=== PATIENT | male | born 1965 | race American Indian/Alaskan Native ===

== ENCOUNTER 2018-08-26 19:21 | Inpatient (IN) | payer MEDICARE, OTHER ==
[2018-08-26 19:21] VITALS: BMI 36.3
[2018-08-26 19:55] LABS: BASO # 0.2 K/uL (0.0-0.2); BASO % 2.8 % (0.0-2.0); EOS # 0.2 K/uL (0.0-0.7); EOS % 2.8 % (0.0-4.0); HEMOGLOBIN 12.2 g/dL (12.0-18.0); LYMPH # 2.3 K/uL (1.0-4.3); LYMPH % 30.8 % (20.0-40.0); MEAN CELL VOLUME 84.5 fl (80.0-94.0); MEAN CORPUSCULAR HEMOGLOBIN 28.3 pg (27.0-31.0); MEAN CORPUSCULAR HGB CONC 33.5 g/dL (33.0-37.0); MEAN PLATELET VOLUME 7.8 fl (7.2-11.7); MONO # 0.7 K/uL (0.0-0.8); MONO % 9.7 % (0.0-10.0); NEUT % 53.9 % (50.0-75.0); NRBC % 0.1 % (0.0-0.0); RBC 4.3 Mil/uL (4.40-5.90); RED CELL DISTRIBUTION WIDTH 15.1 % (11.5-14.5); WHITE BLOOD COUNT 7.3 K/uL (4.8-10.8)
[2018-08-26 20:00] LABS: INR 0.9; PROTHROMBIN TIME 10.5 Seconds (9.8-13.1)
[2018-08-26 20:03] LABS: PARTIAL THROMBOPLASTIN TIME 30.1 Seconds (25.6-37.1)
[2018-08-26 20:04] LABS: ALB/GLOB RATIO 1.2 (1.0-2.1); ALBUMIN 4.2 g/dL (3.5-5.0); ALT/SGPT 24 U/L (21-72); AST/SGOT 32 U/L (17-59); BLOOD UREA NITROGEN 13 mg/dl (9-20); CALCIUM 9.8 mg/dL (8.4-10.2); GFR NON-AFRICAN AMERICAN > 60
[2018-08-26 20:16] LABS: B-TYPE NATRIURETIC PEPTIDE 375 pg/ml (0-900)
--- NOTE | 2018-08-26 20:29 | ED PDOC ---
HPI: SOB/CHF/COPD Time Seen by Provider: 08/26/18 19:37 Chief Complaint (Nursing): Chest Pain Chief Complaint (Provider): Shortness of Breath History Per: Patient History/Exam Limitations: no limitations Onset/Duration Of Symptoms: Days (x2) Current Symptoms Are (Timing): Still Present Additional Complaint(s): 52 y/o male with a PMHx of HTN, DM and dyslipidemia presenting for evaluation of intermittent shortness of breath, onset two days ago. Patient states shortness of breath is associated with chest pain that radiates to the left shoulder. Patient reports symptoms worsen with laying down. Otherwise, patient denies fever, cough, nausea, vomiting and diaphoresis. PMD: Brent Wynn I. Past Medical History Reviewed: Historical Data, Nursing Documentation, Vital Signs Vital Signs: Last Vital Signs Temp 99.0 F 08/26/18 19:29 Pulse 111 H 08/26/18 19:29 Resp 18 08/26/18 19:29 BP 151/96 H 08/26/18 19:29 Pulse Ox 100 08/26/18 19:29 - Medical History PMH: CHF (NOVEMBER 2013), HTN, Hypercholesterolemia Denies: Chronic Kidney Disease - Surgical History Other surgeries: Angioplasty and bilateral eye surgery. - Family History Family History: States: Unknown Family Hx - Social History Current smoker - smoking cessation education provided: No Alcohol: None Drugs: Denies - Home Medications Home Medications: Ambulatory Orders Medication Instructions Recorded Aspirin 325 mg PO DAILY 11/27/13 GlipiZIDE [Glipizide] 10 mg PO BID 11/27/13 Lisinopril 20 mg PO DAILY 11/27/13 Metformin HCl [Metformin] 1,000 mg PO BID 11/27/13 Metoprolol Succinate 0.5 mg PO BID 11/27/13 Simvastatin 20 mg PO DAILY 11/27/13 traMADol [Ultram] 50 mg PO TID #16 tab 04/21/14 - Allergies Allergies/Adverse Reactions: Allergies Allergy/AdvReac Type Severity Reaction Status Date / Time No Known Allergies Allergy Verified 11/30/13 07:41 Review of Systems ROS Statement: Except As Marked, All Systems Reviewed And Found Negative Constitutional: Negative for: Fever, Sweats Cardiovascular: Positive for: Chest Pain (discomfort) Respiratory: Positive for: Shortness of Breath. Negative for: Cough Gastrointestinal: Negative for: Nausea, Vomiting Musculoskeletal: Positive for: Shoulder Pain (left) Physical Exam - Reviewed Nursing Documentation Reviewed: Yes Vital Signs Reviewed: Yes - Physical Exam Appears: Positive for: No Acute Distress Head Exam: Positive for: ATRAUMATIC, NORMOCEPHALIC Skin: Positive for: Normal Color, Warm, Dry Eye Exam: Positive for: Normal appearance, EOMI, PERRL Neck: Positive for: Normal, Painless ROM, Supple Cardiovascular/Chest: Positive for: Regular Rate, Rhythm. Negative for: Murmur Respiratory: Positive for: Normal Breath Sounds. Negative for: Respiratory Distress Gastrointestinal/Abdominal: Positive for: Normal Exam, Soft. Negative for: Tenderness Back: Positive for: Normal Inspection. Negative for: L CVA Tenderness, R CVA Tenderness, Vertebral Tenderness Extremity: Positive for: Normal ROM. Negative for: Pedal Edema, Deformity, Swelling Neurologic/Psych: Positive for: Alert, Oriented. Negative for: Motor/Sensory Deficits - Laboratory Results Result Diagrams: 08/26/18 19:50 08/26/18 19:50 Lab Results: PT 10.5 Seconds (9.8-13.1) 08/26/18 19:50 INR 0.9 08/26/18 19:50 APTT 30.1 Seconds (25.6-37.1) 08/26/18 19:50 Troponin I 0.0370 ng/mL (0.00-0.120) 08/26/18 19:50 NT-Pro-B Natriuret Pep 375 pg/ml (0-900) 08/26/18 19:50 Total Bilirubin 0.2 mg/dl (0.2-1.3) 08/26/18 19:50 AST 32 U/L (17-59) 08/26/18 19:50 ALT 24 U/L (21-72) 08/26/18 19:50 Alkaline Phosphatase 53 U/L (38-126) 08/26/18 19:50 Total Protein 7.6 G/DL (6.3-8.2) 08/26/18 19:50 Albumin 4.2 g/dL (3.5-5.0) 08/26/18 19:50 Globulin 3.4 gm/dL (2.2-3.9) 08/26/18 19:50 Albumin/Globulin Ratio 1.2 (1.0-2.1) 08/26/18 19:50 - ECG O2 Sat by Pulse Oximetry: 100 (RA) Pulse Ox Interpretation: Normal Medical Decision Making Medical Decision Making: Time: 1940 Impression: 52 y/o male with shortness of breath, in setting of known CHF. Plan: -- EKG -- B-Type Natriuretic -- CMP -- Troponin I -- CBC with Differentials -- PTT -- Prothrombin Time -- Heplock Insertion Time: 2011 Plan: -- CXR Two Views Time: 2213 -- Labs reviewed and show no clinically significant abnormalities. CXR demonstrates no acute findings. Spoke to Dr. Wynn who agrees patient to remain in hospital as OBS-patient. Patient to be diagnosed with chest pain. _ Scribe Attestation: Documented by Mariajose Norman, acting as a scribe for Robinson Hendrickson MD. Provider Scribe Attestation: All medical record entries made by the Scribe were at my direction and pers onally dictated by me. I have reviewed the chart and agree that the record accurately reflects my personal performance of the history, physical exam, medical decision making, and the department course for this patient. I have also personally directed, reviewed, and agree with the discharge instructions and disposition. Disposition - Clinical Impression Clinical Impression: Chest pain - Patient ED Disposition Is Patient to be Admitted: Yes Counseled Patient/Family Regarding: Studies Performed, Diagnosis, Rx Given - Disposition Referrals: Brent Wynn MD [Primary Care Provider] - Disposition: Routine/Home Disposition Time: 22:14 Condition: FAIR Forms: [facility] ([place]) - Pt Status Changed To: Hospital Disposition Of: Observation
[2018-08-27 04:37] LABS: MEAN CELL VOLUME 85.1 fl (80.0-94.0); MEAN CORPUSCULAR HEMOGLOBIN 28.3 pg (27.0-31.0); MEAN CORPUSCULAR HGB CONC 33.2 g/dL (33.0-37.0); RBC 4.25 Mil/uL (4.40-5.90); RED CELL DISTRIBUTION WIDTH 15.2 % (11.5-14.5); WHITE BLOOD COUNT 6.7 K/uL (4.8-10.8)
[2018-08-27 05:47] LABS: BLOOD UREA NITROGEN 12 mg/dl (9-20); CALCIUM 9.2 mg/dL (8.4-10.2); GFR NON-AFRICAN AMERICAN > 60
--- NOTE | 2018-08-27 08:59 | CARD ---
APPROVED REPORT Date of service: 08/26/2018 EKG Measurement Heart [id number] <Conclusion> Sinus tachycardia Left axis deviation Voltage criteria for left ventricular hypertrophy T wave abnormality, consider lateral ischemia Abnormal ECG
--- NOTE | 2018-08-27 09:05 | RAD ---
Date of service: 08/26/2018 HISTORY: SOB COMPARISON: No prior. TECHNIQUE: Chest PA and lateral FINDINGS: LUNGS: Lung volumes lower limits of normal. No consolidation. PLEURA: No significant pleural effusion identified. No pneumothorax apparent. CARDIOVASCULAR: No aortic atherosclerotic calcification present. Mild cardiomegaly No significant or acute findings to account for/ related to the clinical presentation. OSSEOUS STRUCTURES: Mid thoracic spondylosis. VISUALIZED UPPER ABDOMEN: Normal. OTHER FINDINGS: None. IMPRESSION: No acute pulmonary pathology appreciated. Cardiomegaly -mild
[2018-08-27] MEDS: Enoxaparin 40 mg Syringe SC SCH (09:56)
[2018-08-27] MEDS: Insulin Regular 100 units/ml SC SCH ×4 (10:01→22:05)
--- NOTE | 2018-08-27 13:03 | MRI ---
Date of service: 08/27/2018 PROCEDURE: MRI BRAIN WITHOUT CONTRAST HISTORY: CONFUSION COMPARISON: Unenhanced head CT 04/21/2014. TECHNIQUE: Multiplanar, multisequence MR images of the brain were obtained without intravenous contrast enhancement. FINDINGS: HEMORRHAGE: A linear area of diminished signal intensity is appreciated in the gradient echo axial series at the infarctions site in the periphery which could reflect trace hemorrhage related to a cortical vein or perhaps thrombus of a cortical vein. Finally, increased blood flow through cortical vein is a limited possibility. DWI: Increased diffusion-weighted signal changes are seen at the left parietal lobe with corresponding dark signal in the ADC map compatible with acute or subacute infarct. There is limited local mass effect but no midline shift. BRAIN PARENCHYMA: Diffuse cerebral atrophy is appreciated mildly throughout the cerebrum and periventricular subcortical white matter signal changes are identified sparing the corpus callosum in a pattern that may reflect early chronic microangiopathy. Clinically correlate further. Remaining brain parenchyma is unremarkable the brainstem and cerebellum. No suspicious extra-axial collection appreciable. VENTRICLES: Unremarkable. No hydrocephalus. CRANIUM: Unremarkable. ORBITS: Grossly unremarkable. PARANASAL SINUSES/MASTOIDS: Clear VASCULAR SYSTEM: Skull base flow voids intact. OTHER FINDINGS: None. IMPRESSION: 1. Small acute subacute lobar infarction is identified in the left parietal lobe with limited local mass effect but no midline shift. Associated high flow within local cortical vein is questioned versus potential thrombosis or trace hemorrhage related to the periphery of a cortical vein. 2. Potential early age-related neuro degenerative findings, particularly the patient is a vasculopath (such as a diabetic).
--- NOTE | 2018-08-27 15:13 | CP.PCM.CON ---
History of Present Illness - History of Present Illness History of Present Illness: Neurology Consultation Note: Mr. York is a 52-year-old man with a past medical history of DM, HTN, CHF, HLD, who states that 3 days ago, he developed some confusion along with dizziness and a headache during an episode of palpitations. An MRI of the brain was done today that showed a left parietal lobe ischemic stroke with a possible cortical vein dilation. The patient states that his headache is improved, but he continues to have some difficulty with remembering words. He does have a right facial droop, but denies any other focal deficits. Review of Systems - Constitutional Constitutional: As Per HPI - EENT Eyes: Other Visual Disturbances Ears: absent: As Per HPI, Decreased Hearing, Ear Discharge, Ear Pain, Tinnitus, Abnormal Hearing, Disequilibrium, Dizziness, Other Nose/Mouth/Throat: absent: As Per HPI, Epistaxis, Nasal Congestion, Nasal Discharge, Nasal Obstruction, Nasal Trauma, Nose Pain, Post Nasal Drip, Sinus Pain, Sinus Pressure, Bleeding Gums, Change in Voice, Dental Pain, Dry Mouth, Dysphagia, Halitosis, Hoarsness, Lip Swelling, Mouth Lesions, Mouth Pain, Odynophagia, Sore Throat, Throat Swelling, Tongue Swelling, Facial Pain, Neck Pain, Neck Mass, Other - Cardiovascular Cardiovascular: As Per HPI - Respiratory Respiratory: absent: As Per HPI, Cough, Dyspnea, Hemoptysis, Dyspnea on Exertion, Wheezing, Snoring, Stridor, Pain on Inspiration, Chest Congestion, Excessive Mucous Production, Change in Mucous Color, Pain with Coughing, Other - Gastrointestinal Gastrointestinal: absent: As Per HPI, Abdominal Pain, Belching, Bloating, Change in Bowel Habits, Change in Stool Character, Coffee Ground Emesis, Constipation, Cramping, Diarrhea, Dyspepsia, Dysphagia, Early Satiety, Excessive Flatus, Fecal Incontinence, Heartburn, Hematemesis, Hematochezia, Loose Stools, Melena, Nausea, Odynophagia, Temesmus, Vomiting, Other - Genitourinary Genitourinary: absent: As Per HPI, Change in Urinary Stream, Difficulty Urinating, Dysuria, Flank Pain, Hematuria, Pyuria, Nocturia, Urinary Incontin ence, Urinary Frequency, Urinary Hesitance, Urinary Urgency, Voiding Freq/Small Amts, Freq UTI, Hx Renal/Bladder Calculi, Hx /Renal Surgery, Bladder Distension, Other - Musculoskeletal Musculoskeletal: absent: As Per HPI, Abnormal Gait, Arthralgias, Atrophy, Back Pain, Deformity, Joint Swelling, Limited Range of Motion, Loss of Height, Muscle Cramps, Muscle Weakness, Myalgias, Neck Pain, Numbness, Radiating Pain into Limb, Stiffness, Tingling, Other - Integumentary Integumentary: absent: As Per HPI, Acne, Alopecia, Bleeding Lesions, Change in Hair, Change in Nails, Change in Pigmentation, Changing Lesions, Dry Skin, Erythema, Furuncle, Hirsutism, Lesions, New Lesions, Non-Healing Lesions, Photosensitivity, Pruritus, Rash, Skin Pain, Skin Ulcer, Sores, Striae, Swelling, Unusual Bruising, Wounds, Jaundice, Other - Neurological Neurological: As Per HPI - Psychiatric Psychiatric: absent: As Per HPI, Abnormal Sleep Pattern, Anhedonia, Anxiety, Auditory Hallucinations, Behavioral Changes, Change in Appetite, Change in Libido, Confusion, Depression, Difficulty Concentrating, Hallucinations, Homicidal Ideation, Hopelessness, Irritability, Memory Loss, Mood Swings, Panic Attacks, Paranoia, Suicidal Ideation, Visual Hallucinations, Tactile Hallucinations, Other - Endocrine Endocrine: absent: As Per HPI, Change in Body Appearance, Change in Libido, Cold Intolorance, Deepening of Voice, Excessive Sweating, Fatigue, Flushing, Heat Intolorance, Increase in Ring/Shoe/Hat Size, Palpitations, Polydipsia, Polyphagia, Polyuria, Other - Hematologic/Lymphatic Hematologic: absent: As Per HPI, Easy Bleeding, Easy Bruising, Lymphadenopathy, Other Past Patient History - Past Medical History & Family History Past Medical History?: Yes - Past Social History Smoking Status: Never Smoked - CARDIAC Hx Cardiac Disorders: Yes Hx Congestive Heart Failure: Yes (NOVEMBER 2013) Hx Hypercholesterolemia: Yes Hx Hypertension: Yes - PULMONARY Hx Respiratory Disorders: No - NEUROLOGICAL Hx Neurological Disorder: No - HEENT Hx HEENT Problems: Yes Other/Comment: [employer]NEAL TRANSPLANT BOTH EYES 10 YRS AGO - RENAL Hx Chronic Kidney Disease: No - ENDOCRINE/METABOLIC Hx Endocrine Disorders: Yes Hx Diabetes Mellitus Type 2: Yes - HEMATOLOGICAL/ONCOLOGICAL Hx Blood Disorders: No Hx AIDS: No Hx Human Immunodeficiency Virus (HIV): No - INTEGUMENTARY Hx Dermatological Problems: No - MUSCULOSKELETAL/RHEUMATOLOGICAL Hx Musculoskeletal Disorders: No Hx Falls: No - GASTROINTESTINAL Hx Gastrointestinal Disorders: No - GENITOURINARY/GYNECOLOGICAL Hx Genitourinary Disorders: No - PSYCHIATRIC Hx Psychophysiologic Disorder: No Hx Substance Use: No - SURGICAL HISTORY Hx Surgeries: Yes Other/Comment: 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 - ANESTHESIA Hx Anesthesia: Yes Hx Anesthesia Reactions: No Hx Malignant Hyperthermia: No Has any member of the family had a problem w/ anesthesia?: No Meds Allergies/Adverse Reactions: Allergies Allergy/AdvReac Type Severity Reaction Status Date / Time No Known Allergies Allergy Verified 11/30/13 07:41 - Medications Medications: Current Medications Aspirin (Aspirin) 325 mg PO DAILY [facility] Atorvastatin Calcium (Lipitor) 20 mg PO DAILY [facility] Last Admin: 08/27/18 09:56 Dose: 20 mg Enoxaparin Sodium (Lovenox) 40 mg SC DAILY [facility]; Protocol Last Admin: 08/27/18 09:56 Dose: 40 mg Glipizide (Glucotrol) 2 mg PO BID [facility] Insulin Human Regular (Humulin R) 0 units SC [facility]; Protocol Last Admin: 08/27/18 12:02 Dose: 6 units Isosorbide Mononitrate (Imdur) 60 mg PO DAILY [facility] Last Admin: 08/27/18 09:56 Dose: 60 mg Lisinopril (Zestril) 40 mg PO DAILY [facility] Last Admin: 08/27/18 09:57 Dose: 40 mg Metformin HCl (Glucophage) 1,000 mg PO BID [facility] Last Admin: 08/27/18 09:57 Dose: 1,000 mg Metoprolol Tartrate (Lopressor) 100 mg PO BID [facility] Last Admin: 08/27/18 09:56 Dose: 100 mg Spironolactone (Aldactone) 25 mg PO DAILY [facility] Last Admin: 08/27/18 09:56 Dose: 25 mg Physical Exam - Constitutional Appears: Well - Head Exam Head Exam: ATRAUMATIC, NORMAL INSPECTION, NORMOCEPHALIC - Eye Exam Eye Exam: Normal appearance, PERRL Pupil Exam: NORMAL ACCOMODATION, PERRL Additional comments: abnormal eye movements due to previous eye surgery - ENT Exam ENT Exam: Mucous Membranes Moist, Normal Exam - Neck Exam Neck exam: Positive for: Normal Inspection - Respiratory Exam Respiratory Exam: Clear to Auscultation Bilateral, NORMAL BREATHING PATTERN - Cardiovascular Exam Cardiovascular Exam: REGULAR RHYTHM, +S1, +S2 - GI/Abdominal Exam GI & Abdominal Exam: Normal Bowel Sounds, Soft. absent: Tenderness - Rectal Exam Rectal Exam: Deferred - Extremities Exam Extremities exam: Positive for: normal inspection - Back Exam Back exam: NORMAL INSPECTION - Neurological Exam Neurological exam: Alert, CN II-XII Intact, Normal Gait, Oriented x3, Reflexes Normal Additional comments: Right facial droop, mild word-finding difficulties. NIHSS = 2 - Psychiatric Exam Psychiatric exam: Normal Affect, Normal Mood - Skin Skin Exam: Dry, Intact, Normal Color, Warm Results - Vital Signs Recent Vital Signs: Last Vital Signs Temp 99.1 F 08/27/18 11:59 Pulse 102 H 08/27/18 11:59 Resp 18 08/27/18 13:45 BP 141/85 08/27/18 11:59 Pulse Ox 98 08/27/18 11:59 - Labs Result Diagrams: 08/27/18 04:00 08/27/18 04:00 Labs: Laboratory Results - last 24 hr 08/26/18 08/26/18 08/26/18 19:50 19:50 19:50 WBC 7.3 RBC 4.30 L Hgb 12.2 Hct 36.3 MCV 84.5 MCH 28.3 MCHC 33.5 RDW 15.1 H Plt Count 336 MPV 7.8 Neut % (Auto) 53.9 Lymph % (Auto) 30.8 [place] % (Auto) 9.7 Eos % (Auto) 2.8 Baso % (Auto) 2.8 H Neut # (Auto) 4.0 Lymph # (Auto) 2.3 [place] # (Auto) 0.7 Eos # (Auto) 0.2 Baso # (Auto) 0.2 PT 10.5 INR 0.9 APTT 30.1 Sodium 139 Potassium 3.7 Chloride 104 Carbon Dioxide 23 Anion Gap 16 BUN 13 Creatinine 1.0 Est GFR ( Amer) > 60 Est GFR (Non-Af Amer) > 60 POC Glucose (mg/dL) Random Glucose 304 H Calcium 9.8 Total Bilirubin 0.2 AST 32 ALT 24 Alkaline Phosphatase 53 Troponin I 0.0370 NT-Pro-B Natriuret Pep 375 Total Protein 7.6 Albumin 4.2 Globulin 3.4 Albumin/Globulin Ratio 1.2 08/26/18 08/27/18 08/27/18 23:09 04:00 04:00 WBC 6.7 RBC 4.25 L Hgb 12.0 Hct 36.1 MCV 85.1 MCH 28.3 MCHC 33.2 RDW 15.2 H Plt Count 324 MPV Neut % (Auto) Lymph % (Auto) [place] % (Auto) Eos % (Auto) Baso % (Auto) Neut # (Auto) Lymph # (Auto) [place] # (Auto) Eos # (Auto) Baso # (Auto) PT INR APTT Sodium Potassium Chloride Carbon Dioxide Anion Gap BUN Creatinine Est GFR ( Amer) Est GFR (Non-Af Amer) POC Glucose (mg/dL) 255 H Random Glucose Calcium Total Bilirubin AST ALT Alkaline Phosphatase Troponin I NT-Pro-B Natriuret Pep 410 Total Protein Albumin Globulin Albumin/Globulin Ratio 08/27/18 08/27/18 08/27/18 04:00 08:09 10:59 WBC RBC Hgb Hct MCV MCH MCHC RDW Plt Count MPV Neut % (Auto) Lymph % (Auto) [place] % (Auto) Eos % (Auto) Baso % (Auto) Neut # (Auto) Lymph # (Auto) [place] # (Auto) Eos # (Auto) Baso # (Auto) PT INR APTT Sodium 137 Potassium 3.7 Chloride 105 Carbon Dioxide 23 Anion Gap 13 BUN 12 Creatinine 0.9 Est GFR ( Amer) > 60 Est GFR (Non-Af Amer) > 60 POC Glucose (mg/dL) 272 H 323 H Random Glucose 314 H Calcium 9.2 Total Bilirubin AST ALT Alkaline Phosphatase Troponin I 0.0350 NT-Pro-B Natriuret Pep Total Protein Albumin Globulin Albumin/Globulin Ratio Assessment & Plan (1) Ischemic stroke Assessment and Plan: Based on MRI report, this could be either due to acute ischemic stroke that a ppears embolic, or may be due to a cortical vein infarct (venous thrombosis). I recommend obtaining a CTA and CTV of the head for further evaluation. In addition, I recommend the followin. Telemetry 2. Echocardiogram with bubble study 3. Aspirin 81 mg daily 4. Lipitor 80 mg daily 5. PT/OT eval and treatment 6. Cardiology consult Will consider anticoagulation based on results of imaging and cardiology recommendations. Thank you for this consultation. Status: Acute
--- NOTE | 2018-08-27 17:07 | CP.PCM.CON ---
History of Present Illness - History of Present Illness History of Present Illness: I was asked to evaluate patient by Dr Wynn. Patient seen 08/27/18 4210 Patient is a 52 year old male with HTN, hypercholesterolemia, dilated cardiomyopathy who presents with dysarthria and facial droop. Patient has a logstanding history of dilated cardiomyopathy, and has previously been followed by Dr Moya. I am unaware of the status of his coronaries, however the patient states he has had cardiomyopathy for years and has worn a Lifevest. He states he noted confusion and dizziness and word finding difficulties. The patient was found to have an embolic CVA of the L parietal lobe. The patient denies current dyspnea. he still has periods of confusion. Review of Systems - Constitutional Constitutional: absent: As Per HPI, Anorexia, Chills, Daytime Sleepiness, Excessive Sweating, Fatigue, Fever, Frequent Falls, Headache, Increased Appetite, Lethargy, Malaise, Night Sweats, Snoring, Sleep Apnea, Weight Gain, Weight Loss, Weakness, Other - EENT Eyes: absent: As Per HPI, Blind Spots, Blurred Vision, Change in Vision, Decreased Night Vision, Diplopia, Discharge, Dry Eye, Exophthalmos, Floaters, Irritation, Itchy Eyes, Loss of Peripheral Vision, Pain, Photophobia, Requires Corrective Lenses, Sees Flashes, Spots in Vision, Tunnel Vision, Other Visual Disturbances, Loss of Vision, Other Ears: absent: As Per HPI, Decreased Hearing, Ear Discharge, Ear Pain, Tinnitus, Abnormal Hearing, Disequilibrium, Dizziness, Other Nose/Mouth/Throat: absent: As Per HPI, Epistaxis, Nasal Congestion, Nasal Discharge, Nasal Obstruction, Nasal Trauma, Nose Pain, Post Nasal Drip, Sinus Pain, Sinus Pressure, Bleeding Gums, Change in Voice, Dental Pain, Dry Mouth, Dysphagia, Halitosis, Hoarsness, Lip Swelling, Mouth Lesions, Mouth Pain, Odynophagia, Sore Throat, Throat Swelling, Tongue Swelling, Facial Pain, Neck Pain, Neck Mass, Other - Cardiovascular Cardiovascular: Dyspnea, Orthopnea - Respiratory Respiratory: Dyspnea - Gastrointestinal Gastrointestinal: absent: As Per HPI, Abdominal Pain, Belching, Bloating, Change in Bowel Habits, Change in Stool Character, Coffee Ground Emesis, Constipation, Cramping, Diarrhea, Dyspepsia, Dysphagia, Early Satiety, Excessive Flatus, Fecal Incontinence, Heartburn, Hematemesis, Hematochezia, Loose Stools, Melena, N ausea, Odynophagia, Temesmus, Vomiting, Other - Genitourinary Genitourinary: absent: As Per HPI, Change in Urinary Stream, Difficulty Urinating, Dysuria, Flank Pain, Hematuria, Pyuria, Nocturia, Urinary Incontinence, Urinary Frequency, Urinary Hesitance, Urinary Urgency, Voiding Freq/Small Amts, Freq UTI, Hx Renal/Bladder Calculi, Hx /Renal Surgery, Bladder Distension, Other - Musculoskeletal Musculoskeletal: absent: As Per HPI, Abnormal Gait, Arthralgias, Atrophy, Back Pain, Deformity, Joint Swelling, Limited Range of Motion, Loss of Height, Muscle Cramps, Muscle Weakness, Myalgias, Neck Pain, Numbness, Radiating Pain into Limb, Stiffness, Tingling, Other - Integumentary Integumentary: absent: As Per HPI, Acne, Alopecia, Bleeding Lesions, Change in Hair, Change in Nails, Change in Pigmentation, Changing Lesions, Dry Skin, Erythema, Furuncle, Hirsutism, Lesions, New Lesions, Non-Healing Lesions, Photosensitivity, Pruritus, Rash, Skin Pain, Skin Ulcer, Sores, Striae, Swelling, Unusual Bruising, Wounds, Jaundice, Other - Neurological Neurological: Confusion, Disequilibrium, Dizziness, Memory Loss - Psychiatric Psychiatric: absent: As Per HPI, Abnormal Sleep Pattern, Anhedonia, Anxiety, Auditory Hallucinations, Behavioral Changes, Change in Appetite, Change in Libido, Confusion, Depression, Difficulty Concentrating, Hallucinations, Homicidal Ideation, Hopelessness, Irritability, Memory Loss, Mood Swings, Panic Attacks, Paranoia, Suicidal Ideation, Visual Hallucinations, Tactile Juan lucinations, Other - Endocrine Endocrine: absent: As Per HPI, Change in Body Appearance, Change in Libido, Cold Intolorance, Deepening of Voice, Excessive Sweating, Fatigue, Flushing, Heat Intolorance, Increase in Ring/Shoe/Hat Size, Palpitations, Polydipsia, P olyphagia, Polyuria, Other - Hematologic/Lymphatic Hematologic: absent: As Per HPI, Easy Bleeding, Easy Bruising, Lymphadenopathy, Other Past Patient History - Past Medical History & Family History Past Medical History?: Yes - Past Social History Smoking Status: Never Smoked - CARDIAC Hx Cardiac Disorders: Yes Hx Congestive Heart Failure: Yes (NOVEMBER 2013) Hx Hypercholesterolemia: Yes Hx Hypertension: Yes - PULMONARY Hx Respiratory Disorders: No - NEUROLOGICAL Hx Neurological Disorder: No - HEENT Hx HEENT Problems: Yes Other/Comment: CORNEAL TRANSPLANT BOTH EYES 10 YRS AGO - RENAL Hx Chronic Kidney Disease: No - ENDOCRINE/METABOLIC Hx Endocrine Disorders: Yes Hx Diabetes Mellitus Type 2: Yes - HEMATOLOGICAL/ONCOLOGICAL Hx Blood Disorders: No Hx AIDS: No Hx Human Immunodeficiency Virus (HIV): No - INTEGUMENTARY Hx Dermatological Problems: No - MUSCULOSKELETAL/RHEUMATOLOGICAL Hx Musculoskeletal Disorders: No Hx Falls: No - GASTROINTESTINAL Hx Gastrointestinal Disorders: No - GENITOURINARY/GYNECOLOGICAL Hx Genitourinary Disorders: No - PSYCHIATRIC Hx Psychophysiologic Disorder: No Hx Substance Use: No - SURGICAL HISTORY Hx Surgeries: Yes Other/Comment: 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 - ANESTHESIA Hx Anesthesia: Yes Hx Anesthesia Reactions: No Hx Malignant Hyperthermia: No Has any member of the family had a problem w/ anesthesia?: No Meds Allergies/Adverse Reactions: Allergies Allergy/AdvReac Type Severity Reaction Status Date / Time No Known Allergies Allergy Verified 11/30/13 07:41 - Medications Medications: Current Medications Aspirin (Aspirin) 325 mg PO DAILY [facility] Atorvastatin Calcium (Lipitor) 20 mg PO DAILY [facility] Last Admin: 08/27/18 09:56 Dose: 20 mg Enoxaparin Sodium (Lovenox) 40 mg SC DAILY [facility]; Protocol Last Admin: 08/27/18 09:56 Dose: 40 mg Glipizide (Glucotrol) 2 mg PO BID [facility] Insulin Human Regular (Humulin R) 0 units SC [facility]; Protocol Last Admin: 08/27/18 16:14 Dose: 3 units Isosorbide Mononitrate (Imdur) 60 mg PO DAILY [facility] Last Admin: 08/27/18 09:56 Dose: 60 mg Lisinopril (Zestril) 40 mg PO DAILY [facility] Last Admin: 08/27/18 09:57 Dose: 40 mg Metformin HCl (Glucophage) 1,000 mg PO BID [facility] Last Admin: 08/27/18 16:10 Dose: 1,000 mg Metoprolol Tartrate (Lopressor) 100 mg PO BID [facility] Last Admin: 08/27/18 16:10 Dose: 100 mg Spironolactone (Aldactone) 25 mg PO DAILY [facility] Last Admin: 08/27/18 09:56 Dose: 25 mg Physical Exam - Constitutional Appears: Non-toxic - Head Exam Head Exam: NORMAL INSPECTION - Eye Exam Eye Exam: Normal appearance - ENT Exam ENT Exam: Mucous Membranes Moist - Neck Exam Neck exam: Positive for: Full Rom - Respiratory Exam Respiratory Exam: NORMAL BREATHING PATTERN - Cardiovascular Exam Cardiovascular Exam: REGULAR RHYTHM - GI/Abdominal Exam GI & Abdominal Exam: Normal Bowel Sounds - Rectal Exam Rectal Exam: Deferred - Extremities Exam Extremities exam: Negative for: pedal edema - Back Exam Back exam: NORMAL INSPECTION - Neurological Exam Neurological exam: Alert, Oriented x3 - Psychiatric Exam Psychiatric exam: Normal Affect - Skin Skin Exam: Normal Color Results - Vital Signs Recent Vital Signs: Last Vital Signs Temp 98.7 F 08/27/18 15:49 Pulse 92 H 08/27/18 16:10 Resp 16 08/27/18 15:49 BP 119/73 08/27/18 16:10 Pulse Ox 95 08/27/18 15:49 - Labs Result Diagrams: 08/27/18 04:00 08/27/18 04:00 Labs: Laboratory Results - last 24 hr 08/26/18 08/26/18 08/26/18 19:50 19:50 19:50 WBC 7.3 RBC 4.30 L Hgb 12.2 Hct 36.3 MCV 84.5 MCH 28.3 MCHC 33.5 RDW 15.1 H Plt Count 336 MPV 7.8 Neut % (Auto) 53.9 Lymph % (Auto) 30.8 Howell % (Auto) 9.7 Eos % (Auto) 2.8 Baso % (Auto) 2.8 H Neut # (Auto) 4.0 Lymph # (Auto) 2.3 Howell # (Auto) 0.7 Eos # (Auto) 0.2 Baso # (Auto) 0.2 PT 10.5 INR 0.9 APTT 30.1 Sodium 139 Potassium 3.7 Chloride 104 Carbon Dioxide 23 Anion Gap 16 BUN 13 Creatinine 1.0 Est GFR ( Amer) > 60 Est GFR (Non-Af Amer) > 60 POC Glucose (mg/dL) Random Glucose 304 H Calcium 9.8 Total Bilirubin 0.2 AST 32 ALT 24 Alkaline Phosphatase 53 Troponin I 0.0370 NT-Pro-B Natriuret Pep 375 Total Protein 7.6 Albumin 4.2 Globulin 3.4 Albumin/Globulin Ratio 1.2 08/26/18 08/27/18 08/27/18 23:09 04:00 04:00 WBC 6.7 RBC 4.25 L Hgb 12.0 Hct 36.1 MCV 85.1 MCH 28.3 MCHC 33.2 RDW 15.2 H Plt Count 324 MPV Neut % (Auto) Lymph % (Auto) Howell % (Auto) Eos % (Auto) Baso % (Auto) Neut # (Auto) Lymph # (Auto) Howell # (Auto) Eos # (Auto) Baso # (Auto) PT INR APTT Sodium Potassium Chloride Carbon Dioxide Anion Gap BUN Creatinine Est GFR ( Amer) Est GFR (Non-Af Amer) POC Glucose (mg/dL) 255 H Random Glucose Calcium Total Bilirubin AST ALT Alkaline Phosphatase Troponin I NT-Pro-B Natriuret Pep 410 Total Protein Albumin Globulin Albumin/Globulin Ratio 08/27/18 08/27/18 08/27/18 04:00 08:09 10:59 WBC RBC Hgb Hct MCV MCH MCHC RDW Plt Count MPV Neut % (Auto) Lymph % (Auto) Howell % (Auto) Eos % (Auto) Baso % (Auto) Neut # (Auto) Lymph # (Auto) Howell # (Auto) Eos # (Auto) Baso # (Auto) PT INR APTT Sodium 137 Potassium 3.7 Chloride 105 Carbon Dioxide 23 Anion Gap 13 BUN 12 Creatinine 0.9 Est GFR ( Amer) > 60 Est GFR (Non-Af Amer) > 60 POC Glucose (mg/dL) 272 H 323 H Random Glucose 314 H Calcium 9.2 Total Bilirubin AST ALT Alkaline Phosphatase Troponin I 0.0350 NT-Pro-B Natriuret Pep Total Protein Albumin Globulin Albumin/Globulin Ratio 08/27/18 15:59 WBC RBC Hgb Hct MCV MCH MCHC RDW Plt Count MPV Neut % (Auto) Lymph % (Auto) Howell % (Auto) Eos % (Auto) Baso % (Auto) Neut # (Auto) Lymph # (Auto) Howell # (Auto) Eos # (Auto) Baso # (Auto) PT INR APTT Sodium Potassium Chloride Carbon Dioxide Anion Gap BUN Creatinine Est GFR ( Amer) Est GFR (Non-Af Amer) POC Glucose (mg/dL) 219 H Random Glucose Calcium Total Bilirubin AST ALT Alkaline Phosphatase Troponin I NT-Pro-B Natriuret Pep Total Protein Albumin Globulin Albumin/Globulin Ratio - EKG Data EKG Interpreted by: Myself EKG shows normal: Sinus rhythm Assessment & Plan (1) Dilated cardiomyopathy Assessment and Plan: patient has known history of cardiomyopathy. He will benefit from AICD as prim danie prophylaxis of sudden cardic . However I do no rrecommend at this tme due to acute CVA. I will attemtp to refit for Lifevest which will be in placed until he is fully treated from a neurolgical stanspoint. it is prudent from anticaogulation to start now to reduce furhter embolic event Status: Acute (2) Ischemic stroke Assessment and Plan: likely cardiac given severe LV dysfunction. recommend anticaogulation. can use NOAC Status: Acute (3) HTN (hypertension) Assessment and Plan: recommend changing metoprolol to approved heart failure therapy Status: Acute
--- NOTE | 2018-08-27 17:53 | HP ---
HISTORY OF PRESENT ILLNESS: Mr. York is a 52-year-old male who was admitted of shortness of breath and mild confusion for the past two days prior to presentation. He denies chest pains, but has had some palpitations. His blood sugar has been elevated at home and his blood pressure has also been elevated. PAST MEDICAL HISTORY: He has a past medical history of congestive heart failure, cardiomyopathy since 2013; appears to be viral related, hypertension, hyperlipidemia, and diabetes mellitus poorly controlled. FAMILY HISTORY: Remarkable for a sister who has hypertension and diabetes, a brother who has hypertension and diabetes, mother who has mild congestive heart failure and hypertension and father who of complications related to kidney disease. SOCIAL HISTORY: He lives at home with his family. Does not smoke or drink. REVIEW OF SYSTEMS: Essentially remarkable for occasional palpitations and shortness of breath. PHYSICAL EXAMINATION: GENERAL: The patient is alert and oriented, appears much more comfortable at present. VITAL SIGNS: On admission, blood pressure 151/96 with a pulse of 111, respiratory rate 18. He is afebrile. O2 saturation 100% on room air. SKIN: Shows fair turgor. HEENT: Pupils are round and accommodation. JVP flat. Mouth shows fair hygiene. LUNGS: Fair aeration. No rales or wheezing appreciated. HEART: S1 and S2 with occasional extrasystole. ABDOMEN: Soft, nontender, no organomegaly. EXTREMITIES: Show no edema or cyanosis. CENTRAL NERVOUS SYSTEM: Exam grossly intact. LABORATORY DATA: Remarkable for sodium of 139, potassium 3.7, BUN 13, creatinine 1, calcium 9.8, serum glucose 304. Troponin 0.037. ProBNP of 10. WBC 7.3, hemoglobin 12.2, platelet count of 336,000, PT 10.5 and INR 0.9. EKG shows sinus tachycardia with left axis deviation, LVH by voltage; consider lateral ischemia. Chest x-ray no active pulmonary pathology noted. Mild cardiomegaly. IMPRESSION: 1. Shortness of breath and mild confusion, questionable etiology. 2. Diabetes mellitus poorly controlled. 3. Hypertension poorly controlled. 4. History of cardiomyopathy. 5. History of arthritis. PLAN: Obtain cardiology evaluation, obtain MRI of the brain to rule out EXPLOSIVES OPERATOR pathology, monitor blood sugar closely, monitor blood pressure closely. Keep the patient on telemetry for the next 24 hours; if clinically stable and cleared by Cardiology might discharge home in 24 hours. Brent Wynn MD
--- NOTE | 2018-08-27 18:58 | CARD ---
APPROVED REPORT Date of service: 08/27/2018 EKG Measurement Heart [id number] <Conclusion> Normal sinus rhythm Possible Left atrial enlargement Left axis deviation Left ventricular hypertrophy Nonspecific T wave abnormality Abnormal ECG
--- NOTE | 2018-08-27 19:22 | CARD ---
APPROVED REPORT Date of service: 08/27/2018 EXAM: Two-dimensional and M-mode echocardiogram with Doppler and color Doppler. Other Information Quality : GoodRhythm : NSR INDICATION Chest Pain 2D DIMENSIONS IVSd1.26 (0.7-1.1cm)LVDd5.91 (3.9-5.9cm) LVOT Diameter1.79 (1.8-2.4cm)PWd1.24 (0.7-1.1cm) IVSs1.32 (0.8-1.2cm)LVDs5.23 (2.5-4.0cm) FS (%) 11.5 %PWs1.46 (0.8-1.2cm) M-Mode DIMENSIONS Left Atrium (MM)4.29 (2.5-4.0cm)IVSd0.97 (0.7-1.1cm) Aortic Root3.06 (2.2-3.7cm)LVDd7.15 (4.0-5.6cm) Aortic Cusp Exc.1.88 (1.5-2.0cm)PWd0.82 (0.7-1.1cm) IVSs1.03 cmFS (%) 18 % LVDs5.88 (2.0-3.8cm)PWs1.29 cm Aortic Valve AoV Peak Lnruvcrj521.5cm/sAoV VTI18.2cmAO Peak GR.4mmHg LVOT Peak Nucisfto15.9cm/sLVOT VTI11.66cmAO Mean GR.3mmHg ANMOL (VMAX)0.42hb2FYE (VTI)0.75cm2 Mitral Valve E/A ratio0.0 TDI E/Lateral E'0.0E/Medial E'0.0 LEFT VENTRICLE The Left Ventricle is mildly dilated. There is mild concentric left ventricular hypertrophy. The ejection fraction is severely impaired. The estimated ejection fraction is 20-25% There is global hypokinesis of the left ventricle. Transmitral Doppler flow pattern is Grade II-pseudonormal filling dynamics. No left ventricle thrombus noted on this study. There is no ventricular septal defect visualized. There is no left ventricular aneurysm. There is no mass noted in the left ventricle. RIGHT VENTRICLE The right ventricle is normal size. There is normal right ventricular wall thickness. The right ventricular systolic function is normal. ATRIA The left atrium is moderately dilated. The right atrium size is normal. The interatrial septum is intact with no evidence for an atrial septal defect. AORTIC VALVE The aortic valve is normal in structure. No aortic regurgitation is present. There is no aortic valvular stenosis. There is no aortic valvular vegetation. MITRAL VALVE The mitral valve is normal in structure. There is no evidence of mitral valve prolapse. There is no mitral valve stenosis. There is mild mitral valve regurgitation noted. TRICUSPID VALVE The tricuspid valve is normal in structure. There is no tricuspid valve regurgitation noted. There is no tricuspid valve prolapse or vegetation. There is no tricuspid valve stenosis. PULMONIC VALVE The pulmonary valve is normal in structure. There is no pulmonic valvular regurgitation. There is no pulmonic valvular stenosis. GREAT VESSELS The aortic root is normal in size. The ascending aorta is normal in size. The pulmonary artery is normal. The IVC is normal in size and collapses >50% with inspiration. PERICARDIAL EFFUSION There is no pericardial effusion. There is no pleural effusion. <Conclusion> The Left Ventricle is mildly dilated. There is mild concentric left ventricular hypertrophy. The ejection fraction is severely impaired. The estimated ejection fraction is 20-25% Transmitral Doppler flow pattern is Grade II-pseudonormal filling dynamics. The left atrium is moderately dilated. There is mild mitral valve regurgitation noted. There is no tricuspid valve regurgitation noted. The IVC is normal in size and collapses >50% with inspiration.
[2018-08-27] MEDS ORDERED: Iodixanol 320 MG/ML 100 ML BOTTLE IV ONE (21:00)
[2018-08-27] MEDS ORDERED: Sodium Chloride 0.9% 50 ML IV ONE (21:01)
[2018-08-28 06:14] LABS: ALB/GLOB RATIO 1.1 (1.0-2.1); ALBUMIN 4.1 g/dL (3.5-5.0); ALT/SGPT 20 U/L (21-72); AST/SGOT 36 U/L (17-59); BLOOD UREA NITROGEN 11 mg/dl (9-20); CALCIUM 9.6 mg/dL (8.4-10.2); GFR NON-AFRICAN AMERICAN > 60; HDL CHOLESTEROL 33 MG/DL (30-70)
[2018-08-28 06:18] LABS: LDL CHOLESTEROL 123 mg/dL (0-129)
--- NOTE | 2018-08-28 09:01 | CP.PCM.PN ---
Subjective - Date & Time of Evaluation Date of Evaluation: 08/28/18 Time of Evaluation: 09:02 - Subjective Subjective: STILL HAS SOME DIZZINESS AND FULLNESS IN THE HEAD NO CHEST PAINS/SOB MRI RESULTS AND CARDIAC/NEURO EVAL APPRECIATED Objective - Vital Signs/Intake and Output Vital Signs (last 24 hours): Temp Pulse Resp BP Pulse Ox 98.4 F 94 H 20 145/90 97 08/28/18 08:29 08/28/18 08:29 08/28/18 08:29 08/28/18 08:29 08/28/18 08:29 - Medications Medications: Current Medications Aspirin (Aspirin) 325 mg PO DAILY [facility] Atorvastatin Calcium (Lipitor) 20 mg PO DAILY [facility] Last Admin: 08/27/18 09:56 Dose: 20 mg Enoxaparin Sodium (Lovenox) 40 mg SC DAILY [facility]; Protocol Last Admin: 08/27/18 09:56 Dose: 40 mg Glipizide (Glucotrol) 20 mg PO BID [facility] Insulin Human Regular (Humulin R) [address] [facility]; Protocol Last Admin: 08/27/18 22:05 Dose: Not Given Isosorbide Mononitrate (Imdur) 60 mg PO DAILY [facility] Last Admin: 08/27/18 09:56 Dose: 60 mg Lisinopril (Zestril) 40 mg PO DAILY [facility] Last Admin: 08/27/18 09:57 Dose: 40 mg Metformin HCl (Glucophage) 1,000 mg PO BID [facility] Last Admin: 08/27/18 16:10 Dose: 1,000 mg Metoprolol Succinate (Toprol Xl) 100 mg PO BID [facility] Spironolactone (Aldactone) 25 mg PO DAILY [facility] Last Admin: 08/27/18 09:56 Dose: 25 mg - Labs Labs: 08/27/18 04:00 08/28/18 05:05 PT 10.5 Seconds (9.8-13.1) 08/26/18 19:50 INR 0.9 08/26/18 19:50 APTT 30.1 Seconds (25.6-37.1) 08/26/18 19:50 - Constitutional Appears: No Acute Distress - Head Exam Head Exam: ATRAUMATIC, NORMAL INSPECTION, NORMOCEPHALIC - Eye Exam Eye Exam: EOMI, Normal appearance, PERRL Pupil Exam: NORMAL ACCOMODATION, PERRL - ENT Exam ENT Exam: Mucous Membranes Moist, Normal Exam - Neck Exam Neck Exam: Full ROM, Normal Inspection. absent: Lymphadenopathy - Respiratory Exam Respiratory Exam: Clear to Ausculation Bilateral, NORMAL BREATHING PATTERN - Cardiovascular Exam Cardiovascular Exam: REGULAR RHYTHM, +S1, +S2. absent: Murmur - GI/Abdominal Exam GI & Abdominal Exam: Soft, Normal Bowel Sounds. absent: Tenderness - Rectal Exam Rectal Exam: NORMAL INSPECTION - Extremities Exam Extremities Exam: Full ROM, Normal Capillary Refill, Normal Inspection. absent: Joint Swelling, Pedal Edema - Back Exam Back Exam: NORMAL INSPECTION - Neurological Exam Neurological Exam: Alert, Awake, CN II-XII Intact, Normal Gait, Oriented x3 - Psychiatric Exam Psychiatric exam: Normal Affect, Normal Mood - Skin Skin Exam: Dry, Intact, Normal Color, Warm Assessment and Plan - Assessment and Plan (Free Text) Assessment: CVA ASHD CARDIOMYOPATHY HTN-UNCONTROLLED DM TYPE 2 --UNCONTROLLED NON-COMPLIANCE Plan: CONTINUE NEURO AND CARDIAC WORKUP WILL DISCUS APPROPRIATE ANTICOAGULATION RX WITH NEUROLOGY/CARDIOLOGY
[2018-08-28] MEDS: Metoprolol Succinate 100 mg XL Tab PO SCH ×2 (09:38→16:51)
[2018-08-28] MEDS: Enoxaparin 40 mg Syringe SC SCH (09:38)
[2018-08-28] MEDS: Insulin Regular 100 units/ml SC SCH ×4 (09:40→22:03)
--- NOTE | 2018-08-28 10:17 | CT ---
Date of service: 08/27/2018 PROCEDURE: CT Venography of the Brain. HISTORY: acute cva; please do CT venogram head COMPARISON: None available. TECHNIQUE: A CT examination of the head was performed using 0 the tick was axial sections following intravenous contrast administration utilizing a delay optimizing contrast opacification of the venous drainage system throughout the brain. Contrast Dose: Visipaque 320, 90 cc Radiation dose: Total exam DLP = 328.19 mGy-cm. This CT exam was performed using one or more of the following dose reduction techniques: Automated exposure control, adjustment of the mA and/or kV according to patient size, and/or use of iterative reconstruction technique. FINDINGS: INTERNAL CEREBRAL ARTERIES: Atherosclerotic cavernous internal artery changes appear mild bilaterally. The skull base, petrous, and supraclinoid segments are bilaterally widely patent. ANTERIOR CEREBRAL ARTERIES: Unremarkable. A1 and A2 segments are widely patent. Smaller distal branches unremarkable, as visualized. MIDDLE CEREBRAL ARTERIES: Unremarkable. M1 and M2 segments are widely patent. Perisylvian branches grossly symmetric. POSTERIOR CIRCULATION: Basilar Artery: Unremarkable. Distal Vertebral Arteries: Unremarkable. Posterior Cerebral Arteries: Unremarkable. Posterior Inferior Cerebellar Arteries: Unremarkable. ANEURYSM/ VASCULAR MALFORMATIONS: None. 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 The straight sinus and vein of Robbie appear patent as well. 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 IMPRESSION: 1. 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 Infarction is noted at the left parietal lobe with no infarction at the right in that scan. 2. Incidental note is made of left parietal infarct once again.
--- NOTE | 2018-08-28 15:19 | CP.PCM.PN ---
Subjective - Date & Time of Evaluation Date of Evaluation: 08/28/18 Time of Evaluation: 15:17 - Subjective Subjective: Neurology Follow-Up Note: Mr. York was evaluated this afternoon sitting upright in bed. He states that his right sided weakness has resolved; dizziness has improved. His main complaint today is feeling as though he can't find the proper words to describe things. He denies h/a, visual changes, chest pain, palpitations, sob, cough, abd pain, n/v/d. Objective - Vital Signs/Intake and Output Vital Signs (last 24 hours): Temp Pulse Resp BP Pulse Ox 98.0 F 108 H 20 138/85 98 08/28/18 12:12 08/28/18 12:12 08/28/18 12:12 08/28/18 12:12 08/28/18 12:12 - Medications Medications: Current Medications Aspirin (Aspirin) 325 mg PO DAILY [facility] Last Admin: 08/28/18 09:39 Dose: 325 mg Atorvastatin Calcium (Lipitor) 80 mg PO DAILY [facility] Enoxaparin Sodium (Lovenox) 40 mg SC DAILY [facility]; Protocol Last Admin: 08/28/18 09:38 Dose: 40 mg Glipizide (Glucotrol) 20 mg PO BID [facility] Last Admin: 08/28/18 09:39 Dose: 20 mg Insulin Human Regular (Humulin R) 0 units SC [facility]; Protocol Last Admin: 08/28/18 13:02 Dose: 6 units Isosorbide Mononitrate (Imdur) 60 mg PO DAILY [facility] Last Admin: 08/28/18 09:39 Dose: 60 mg Lisinopril (Zestril) 40 mg PO DAILY [facility] Last Admin: 08/28/18 09:39 Dose: 40 mg Metformin HCl (Glucophage) 1,000 mg PO BID [facility] Last Admin: 08/28/18 09:39 Dose: 1,000 mg Metoprolol Succinate (Toprol Xl) 100 mg PO BID [facility] Last Admin: 08/28/18 09:38 Dose: 100 mg Spironolactone (Aldactone) 25 mg PO DAILY [facility] Last Admin: 08/28/18 09:39 Dose: 25 mg - Labs Labs: 08/27/18 04:00 08/28/18 05:05 PT 10.5 Seconds (9.8-13.1) 08/26/18 19:50 INR 0.9 08/26/18 19:50 APTT 30.1 Seconds (25.6-37.1) 08/26/18 19:50 - Constitutional Appears: Well, Non-toxic, No Acute Distress - Head Exam Head Exam: ATRAUMATIC, NORMAL INSPECTION, NORMOCEPHALIC - Eye Exam Eye Exam: EOMI, Normal appearance, PERRL Pupil Exam: NORMAL ACCOMODATION, PERRL - ENT Exam ENT Exam: Mucous Membranes Moist - Neck Exam Neck Exam: Full ROM, Normal Inspection - Respiratory Exam Respiratory Exam: NORMAL BREATHING PATTERN - Extremities Exam Extremities Exam: Full ROM, Normal Inspection. absent: Calf Tenderness, Pedal Edema - Back Exam Back Exam: Full ROM - Neurological Exam Neurological Exam: Alert, Awake, CN II-XII Intact, Oriented x3, Reflexes Normal Neuro motor strength exam: Left Upper Extremity: 5, Right Upper Extremity: 5, Left Lower Extremity: 5, Right Lower Extremity: 5 Additional comments: Speech clear, fluid AAOx3 Follows all commands No facial asymmetry Strength equal and 5/5 BUE and BLE Sensation and fine motor intact No pronator drift No ataxia + word-finding difficulties - Psychiatric Exam Psychiatric exam: Normal Affect, Normal Mood - Skin Skin Exam: Normal Color Assessment and Plan (1) Ischemic stroke Assessment & Plan: Imaging reviewed: -MRI Brain (08/27/18): 1. Small acute subacute lobar infarction is identified in the left parietal lobe with limited local mass effect but no midline shift. Associated high flow within local cortical vein is questioned versus potential thrombosis or trace hemorrhage related to the periphery of a cortical vein. 2. Potential early age-related neuro degenerative findings, particularly the patient is a vasculopath (such as a diabetic). -CT Venogram (08/27/18): 1. 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 Infarction is noted at the left parietal lobe with no infarction at the right in that scan. 2. Incidental note is made of left parietal infarct once again. -ECHO (without Bubble): EF 20-25% -ECHO with Bubble ordered---will f/u with results once completed. -Continue PT/OT -Continue ASA 81 mg PO daily and Lipitor 80 mg PO daily -Cardiology on the case. -Notify neuro team of any acute changes in pt's condition. Case discussed with Dr. Bolaños Status: Acute
--- NOTE | 2018-08-28 20:01 | CP.PCM.PN ---
Subjective - Date & Time of Evaluation Date of Evaluation: 08/28/18 Time of Evaluation: 19:45 - Subjective Subjective: patient denies chest pain or dyspnea. Objective - Vital Signs/Intake and Output Vital Signs (last 24 hours): Temp Pulse Resp BP Pulse Ox 98.4 F 85 16 124/77 98 08/28/18 19:15 08/28/18 19:15 08/28/18 19:15 08/28/18 19:15 08/28/18 19:15 - Medications Medications: Current Medications Apixaban (Eliquis) 5 mg PO BID [facility]; Protocol Last Admin: 08/28/18 17:09 Dose: 5 mg Aspirin (Aspirin Chewable) 81 mg PO DAILY [facility] Atorvastatin Calcium (Lipitor) 80 mg PO HS [facility] Glipizide (Glucotrol) 20 mg PO BID [facility] Last Admin: 08/28/18 16:50 Dose: 20 mg Insulin Human Regular (Humulin R) 0 units SC [facility]; Protocol Last Admin: 08/28/18 16:50 Dose: 2 units Isosorbide Mononitrate (Imdur) 60 mg PO DAILY [facility] Last Admin: 08/28/18 09:39 Dose: 60 mg Lisinopril (Zestril) 40 mg PO DAILY [facility] Last Admin: 08/28/18 09:39 Dose: 40 mg Metformin HCl (Glucophage) 1,000 mg PO BID [facility] Last Admin: 08/28/18 16:50 Dose: 1,000 mg Metoprolol Succinate (Toprol Xl) 100 mg PO BID [facility] Last Admin: 08/28/18 16:51 Dose: 100 mg Spironolactone (Aldactone) 25 mg PO DAILY [facility] Last Admin: 08/28/18 09:39 Dose: 25 mg - Labs Labs: 08/27/18 04:00 08/28/18 05:05 PT 10.5 Seconds (9.8-13.1) 08/26/18 19:50 INR 0.9 08/26/18 19:50 APTT 30.1 Seconds (25.6-37.1) 08/26/18 19:50 - Constitutional Appears: Non-toxic - Head Exam Head Exam: NORMAL INSPECTION - Eye Exam Eye Exam: Normal appearance - ENT Exam ENT Exam: Mucous Membranes Moist - Neck Exam Neck Exam: Full ROM - Respiratory Exam Respiratory Exam: NORMAL BREATHING PATTERN - Cardiovascular Exam Cardiovascular Exam: REGULAR RHYTHM - GI/Abdominal Exam GI & Abdominal Exam: Normal Bowel Sounds - Rectal Exam Rectal Exam: Deferred - Extremities Exam Extremities Exam: absent: Pedal Edema - Back Exam Back Exam: NORMAL INSPECTION - Neurological Exam Neurological Exam: Alert - Psychiatric Exam Psychiatric exam: Normal Affect - Skin Skin Exam: Normal Color Assessment and Plan (1) Dilated cardiomyopathy Assessment & Plan: continue medical therapy. betablocker Status: Acute (2) Ischemic stroke Assessment & Plan: recommend Eliquis Status: Acute (3) HTN (hypertension) Assessment & Plan: blood pressure control Status: Acute
[2018-08-29] MEDS: Insulin Regular 100 units/ml SC SCH ×2 (09:02→11:28)
[2018-08-29] MEDS: Metoprolol Succinate 100 mg XL Tab PO SCH (09:04)
--- NOTE | 2018-08-29 11:52 | CP.PCM.PN ---
Subjective - Date & Time of Evaluation Date of Evaluation: 08/29/18 Time of Evaluation: 11:50 - Subjective Subjective: Neurology Follow-Up Note: Mr. York was evaluated this morning sitting upright in bed. Brother at bedside. Mr. York admits that his right sided weakness and dizziness have resolved. He is still finding it difficult to find the proper words to describe things, but improved since yesterday. He has been cleared by cardiology for d/c home today. He is eager to go home. Per cardiology, no need for IRVING and ECHO with Bubble as they will not change the treatment at this point. Mr. York currently denies h/a, dizziness, visual changes, paresthesias, chest pain, palpitations, sob, cough, abd pain, n/v/d. Objective - Vital Signs/Intake and Output Vital Signs (last 24 hours): Temp Pulse Resp BP Pulse Ox 98.2 F 95 H 20 134/84 98 08/29/18 09:00 08/29/18 10:18 08/29/18 09:00 08/29/18 09:07 08/29/18 10:18 - Medications Medications: Current Medications Apixaban (Eliquis) 5 mg PO BID [facility]; Protocol Last Admin: 08/29/18 09:06 Dose: 5 mg Aspirin (Aspirin Chewable) 81 mg PO DAILY [facility] Last Admin: 08/29/18 09:05 Dose: 81 mg Atorvastatin Calcium (Lipitor) 80 mg PO HS [facility] Last Admin: 08/28/18 21:06 Dose: 80 mg Glipizide (Glucotrol) 20 mg PO BID [facility] Last Admin: 08/29/18 09:06 Dose: 20 mg Insulin Human Regular (Humulin R) 0 units SC [facility]; Protocol Last Admin: 08/29/18 11:28 Dose: 4 units Isosorbide Mononitrate (Imdur) 60 mg PO DAILY [facility] Last Admin: 08/29/18 09:06 Dose: 60 mg Lisinopril (Zestril) 40 mg PO DAILY [facility] Last Admin: 08/29/18 09:07 Dose: 40 mg Metformin HCl (Glucophage) 1,000 mg PO BID [facility] Last Admin: 08/29/18 09:06 Dose: 1,000 mg Metoprolol Succinate (Toprol Xl) 100 mg PO BID [facility] Last Admin: 08/29/18 09:04 Dose: 100 mg Spironolactone (Aldactone) 25 mg PO DAILY [facility] Last Admin: 08/29/18 09:07 Dose: 25 mg - Labs Labs: 08/27/18 04:00 08/28/18 05:05 PT 10.5 Seconds (9.8-13.1) 08/26/18 19:50 INR 0.9 08/26/18 19:50 APTT 30.1 Seconds (25.6-37.1) 08/26/18 19:50 - Constitutional Appears: Well, Non-toxic, No Acute Distress - Head Exam Head Exam: ATRAUMATIC, NORMAL INSPECTION, NORMOCEPHALIC - Eye Exam Eye Exam: EOMI, Normal appearance, PERRL Pupil Exam: NORMAL ACCOMODATION, PERRL - ENT Exam ENT Exam: Mucous Membranes Moist - Neck Exam Neck Exam: Full ROM, Normal Inspection - Respiratory Exam Respiratory Exam: NORMAL BREATHING PATTERN - GI/Abdominal Exam Additional comments: obese - Extremities Exam Extremities Exam: Full ROM. absent: Calf Tenderness, Pedal Edema - Back Exam Back Exam: Full ROM, NORMAL INSPECTION - Neurological Exam Neurological Exam: Alert, Awake, CN II-XII Intact, Normal Gait, Oriented x3, Reflexes Normal Neuro motor strength exam: Left Upper Extremity: 5, Right Upper Extremity: 5, Left Lower Extremity: 5, Right Lower Extremity: 5 Additional comments: Speech clear, fluid AAOx3 Follows all commands No facial asymmetry Strength equal and 5/5 BUE and BLE Sensation and fine motor intact No pronator drift No ataxia Still has some word-finding difficulties - Psychiatric Exam Psychiatric exam: Normal Affect, Normal Mood - Skin Skin Exam: Normal Color Assessment and Plan (1) Ischemic stroke Assessment & Plan: Imaging reviewed: -MRI Brain (08/27/18): 1. Small acute subacute lobar infarction is identified in the left parietal lobe with limited local mass effect but no midline shift. Associated high flow within local cortical vein is questioned versus potential thrombosis or trace hemorrhage related to the periphery of a cortical vein. 2. Potential early age-related neuro degenerative findings, particularly the patient is a vasculopath (such as a diabetic). -CT Venogram (08/27/18): 1. 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 Infarction is noted at the left parietal lobe with no infarction at the right in that scan. 2. Incidental note is made of left parietal infarct once again. -ECHO (without Bubble): EF 20-25% -ECHO with Bubble vs IRVING requested by neuro team; not necessary per cardio as these tests will not change the pt's treatment and management. -Continue PT/OT -Continue ASA 81 mg PO daily and Lipitor 80 mg PO daily -Cardiology on the case--started pt on Eliquis. -Avoid NSAIDs while on ASA and Eliquis. Discussed using Tylenol prn for pain with the pt. -I educated the pt on s/s acute CVA; he verbalizes understanding. He is also known to be non-compliant with his medications, so I discussed with him the importance of compliance as well. -Follow up with PMD, cardio, and neuro in the offices. Reconsult prn. Thank you for allowing us to participate in this pt's care. Case discussed with Dr. Bolaños Status: Acute
[2018-08-29 12:01] VITALS: BP 131/86; PULSE 92; RESP 18; TEMP 98.7; O2SAT 97
--- NOTE | 2018-08-29 12:07 | CP.PCM.DIS ---
Provider - Provider Date of Admission: 08/28/18 09:06 Attending physician: Brent Wynn MD Primary care physician: Brent Wynn MD Consults: 08/27/18 00:09 Cardiology Consult Stat Comment: Consulting Provider: Beatriz Márquez Consulting Physician: Beatriz Márquez Reason for Consult: chest pain 08/27/18 13:22 Neurology Consult Routine Comment: Consulting Provider: Micheal Bolaños Consulting Physician: Micheal Bolaños Reason for Consult: Small acute/subacute lobar infarction left parietal lobe 08/27/18 14:03 Pastoral Care Referral Routine Comment: Physician Instructions: Reason For Exam: Advance directive information Social Work Referral Routine Comment: Discharge planning Physician Instructions: Reason For Exam: Discharge planning Time Spent in preparation of Discharge (in minutes): 30 Diagnosis - Discharge Diagnosis (1) Diabetes 1.5, managed as type 2 Status: Acute (2) Non-compliant behavior Status: Acute (3) Dilated cardiomyopathy Status: Acute (4) HTN (hypertension) Status: Acute (5) Ischemic stroke Status: Acute (6) Headache Status: Acute Hospital Course - Lab Results Lab Results: Most Recent Lab Values WBC 6.7 K/uL (4.8-10.8) 08/27/18 04:00 RBC 4.25 Mil/uL (4.40-5.90) L 08/27/18 04:00 Hgb 12.0 g/dL (12.0-18.0) 08/27/18 04:00 Hct 36.1 % (35.0-51.0) 08/27/18 04:00 MCV 85.1 fl (80.0-94.0) 08/27/18 04:00 MCH 28.3 pg (27.0-31.0) 08/27/18 04:00 MCHC 33.2 g/dL (33.0-37.0) 08/27/18 04:00 RDW 15.2 % (11.5-14.5) H 08/27/18 04:00 Plt Count 324 K/uL (130-400) 08/27/18 04:00 MPV 7.8 fl (7.2-11.7) 08/26/18 19:50 Neut % (Auto) 53.9 % (50.0-75.0) 08/26/18 19:50 Lymph % (Auto) 30.8 % (20.0-40.0) 08/26/18 19:50 [place] % (Auto) 9.7 % (0.0-10.0) 08/26/18 19:50 Eos % (Auto) 2.8 % (0.0-4.0) 08/26/18 19:50 Baso % (Auto) 2.8 % (0.0-2.0) H 08/26/18 19:50 Neut # (Auto) 4.0 K/uL (1.8-7.0) 08/26/18 19:50 Lymph # (Auto) 2.3 K/uL (1.0-4.3) 08/26/18 19:50 [place] # (Auto) 0.7 K/uL (0.0-0.8) 08/26/18 19:50 Eos # (Auto) 0.2 K/uL (0.0-0.7) 08/26/18 19:50 Baso # (Auto) 0.2 K/uL (0.0-0.2) 08/26/18 19:50 PT 10.5 Seconds (9.8-13.1) 08/26/18 19:50 INR 0.9 08/26/18 19:50 APTT 30.1 Seconds (25.6-37.1) 08/26/18 19:50 Sodium 131 mmol/l (132-148) L 08/28/18 05:05 Potassium 3.7 MMOL/L (3.6-5.0) 08/28/18 05:05 Chloride 98 mmol/L (98-107) 08/28/18 05:05 Carbon Dioxide 26 mmol/L (22-30) 08/28/18 05:05 Anion Gap 11 (10-20) 08/28/18 05:05 BUN 11 mg/dl (9-20) 08/28/18 05:05 Creatinine 0.9 mg/dl (0.8-1.5) 08/28/18 05:05 Est GFR ( Amer) > 60 08/28/18 05:05 Est GFR (Non-Af Amer) > 60 08/28/18 05:05 POC Glucose (mg/dL) 282 mg/dL (65-110) H 08/29/18 10:50 Random Glucose 299 mg/dL (75-110) H 08/28/18 05:05 Hemoglobin A1c 11.0 % (4.2-6.5) H 08/28/18 05:05 Calcium 9.6 mg/dL (8.4-10.2) 08/28/18 05:05 Phosphorus 4.0 mg/dl (2.5-4.5) 08/28/18 05:05 Magnesium 1.5 MG/DL (1.6-2.3) L 08/28/18 05:05 Total Bilirubin 0.4 mg/dl (0.2-1.3) 08/28/18 05:05 AST 36 U/L (17-59) 08/28/18 05:05 ALT 20 U/L (21-72) L 08/28/18 05:05 Alkaline Phosphatase 72 U/L (38-126) 08/28/18 05:05 Troponin I 0.0350 ng/mL (0.00-0.120) 08/27/18 20:49 NT-Pro-B Natriuret Pep 410 pg/ml (0-900) 08/27/18 04:00 Total Protein 7.8 G/DL (6.3-8.2) 08/28/18 05:05 Albumin 4.1 g/dL (3.5-5.0) 08/28/18 05:05 Globulin 3.7 gm/dL (2.2-3.9) 08/28/18 05:05 Albumin/Globulin Ratio 1.1 (1.0-2.1) 08/28/18 05:05 Triglycerides 186 mg/DL (0-149) H 08/28/18 05:05 Cholesterol 206 mg/dL (0-199) H 08/28/18 05:05 LDL Cholesterol Direct 123 mg/dL (0-129) 08/28/18 05:05 HDL Cholesterol 33 MG/DL (30-70) 08/28/18 05:05 - Hospital Course Hospital Course: CLINICALLY IMPROVED WITH RX Discharge Exam - Head Exam Head Exam: ATRAUMATIC, NORMAL INSPECTION, NORMOCEPHALIC - Eye Exam Eye Exam: EOMI, Normal appearance, PERRL Pupil Exam: NORMAL ACCOMODATION, PERRL - GI/Abdominal Exam GI & Abdominal Exam: Normal Bowel Sounds - Rectal Exam Rectal Exam: NORMAL INSPECTION - Neurological Exam Neurological exam: Alert, CN II-XII Intact, Normal Gait, Oriented x3, Reflexes Normal - Psychiatric Exam Psychiatric exam: Normal Affect, Normal Mood - Skin Skin Exam: Dry, Intact, Normal Color, Warm Discharge Plan - Discharge Medications Prescriptions: Aspirin [Aspirin Chewable] 81 mg PO DAILY #30 chew Apixaban [Eliquis] 5 mg PO BID #60 tab Atorvastatin [Lipitor] 80 mg PO HS #30 tab Metoprolol Succinate XL [Toprol XL] 100 mg PO BID #60 tab - Follow Up Plan Condition: FAIR Disposition: HOME/ ROUTINE Instructions: Chest Pain (DC) Referrals: Brent Wynn MD [Primary Care Provider] - Beatriz Márquez MD [Staff Provider] -
== END 2018-08-29 15:00 | disposition home or self-care (01) | DRG 65 ==
LOC: H.ER 19:21 → H.ERHOLD 22:07 → H.TEL 08-27 09:24 → OBSVTOIN 08-28 09:06
PROVIDERS: ADMIT Internal Medicine Pulmonary Disease; ATTEND Internal Medicine Pulmonary Disease
DX: I63.49 Cerebral infarction due to embolism of other cerebral artery (principal); I42.0 Dilated cardiomyopathy; E11.65 Type 2 diabetes mellitus with hyperglycemia; R29.810 Facial weakness; R47.1 Dysarthria and anarthria; I11.0 Hypertensive heart disease with heart failure; I50.9 Heart failure, unspecified; I25.10 Atherosclerotic heart disease of native coronary artery without angina pectoris; Z91.19 Patient's noncompliance with other medical treatment and regimen; E78.00 Pure hypercholesterolemia, unspecified; E78.5 Hyperlipidemia, unspecified; M19.90 Unspecified osteoarthritis, unspecified site; Z79.84 Long term (current) use of oral hypoglycemic drugs; Z79.82 Long term (current) use of aspirin